=== PATIENT | female | born 1945 | race Caucasian/White ===

== ENCOUNTER → 2016-10-12 | Day surgery (SDC) | payer MEDICARE ==
[~2016-10-12] VITALS: Ht 157.5 cm; Wt 104.0 kg
[2016-10-12] VITALS (7 sets, daily range): BP systolic 124–132; BP diastolic 69–88; PULSE 78–97; RESP 14–16; O2SAT 96–100
[~2016-10-12] MED LIST: ALBU8.5H2 INHALATION; AMT25T PO; Atropine 0.4 mg/mL Inj IVPUSH PRN; CALC60CR3 TOPICAL; CERA453C2 TP; CHOL5000 PO; CLOB15CR3 TOP; CYAN100017 SL; FURO-128 PO; HYDR-4003 PO; IMI100 PO; LISI10TA PO; LORA10CA9 PO; Lactated Ringer's 1,000 ML IV ONE; Lactated Ringer's 1,000 ML IV SCH; MOME13HF2 IH; MULT-1018 PO; MetoCLOpramide 5 mg/mL 2 mL Inj IVPUSH PRN; OMEP40CA36 PO; Ondansetron 2 mg/mL 2 mL Inj IVPUSH PRN; PRAM0.75 PO; Propofol 10,000 mCg/mL 20 mL Inj ONE; SERT100T9 PO; TAMO20TA4 PO; TOPI50TA32 PO; ZYL100 PO; fentaNYL-PF 50 mCg/mL 2 mL Inj ONE
--- NOTE | 2016-10-12 11:46 | PCM.HPANE ---
Patient Data Surgeon Admitting Provider: Attending Provider:Zain Green MD Primary Care Physician:Tia Stevenson Other Provider:[facility] Reason for Visit Dysphagia Ht/WT & BMI Height (Feet): 5 Height (Inches): 2 Weight (Kilograms): 104 Body Mass Index 42.00 Allergies Coded Allergies: codeine (Verified Allergy, Severe, DYSPNEA,RESPIRATORY DISTRESS, 10/12/16) TAKES HYDROCODONE AT HOME nitrofurantoin (Verified Adverse Reaction, Severe, N&V, 10/12/16) pregabalin (Verified Adverse Reaction, Severe, EDEMA, 10/12/16) prochlorperazine (Verified Adverse Reaction, Severe, Agitation, 10/12/16) Past Anesthesia History Anesthesia History: Denies:: Abnormal Airway, Anesthesia Reactions, Difficult Intubation, Fam Anesthesia Reaction, Fam Malignant Hypertherm, Malignant Hyperthermia Diabetes History Hx Diabetes?: No MRSA MRSA: No Medications Hypertension Medication: Yes Home Meds Incl Beta Jillian: No Active Scripts Topiramate (Topamax)50 Mg Upddsa45 Mg PO BID 30 Days Ref 0 Prov:David Kelsey MD 12/06/13 Omeprazole 40 Mg Capsule.dr40 Mg PO BID 30 Days Ref 0 Prov:David Kelsey MD 12/06/13 Pramipexole Dihydrochloride (Mirapex)0.75 Mg Tablet0.75 Mg PO DAILY@15 30 Days Prov:David Kelsey MD 12/06/13 Sumatriptan (Imitrex)100 Mg Zicimz384 Mg PO Q12 HEADACHE 30 Days Prov:David Kelsey MD 12/06/13 Allopurinol 100 Mg Qhiaga992 Mg PO DAILY 30 Days Ref 0 Prov:David Kelsey MD 12/06/13 Reported Medications Sertraline HCl (Sertraline)100 Mg Btycba571 Mg PO DAILY 30 Days Ref 0 10/08/16 Mometasone/Formoterol (Dulera 100 Mcg/5 Mcg Inhaler)13 Gm Hfa.aer.ad13 Gm IH 10/08/16 Amitriptyline 25 Mg Tab25 Mg PO TID Ref 0 10/08/16 Tamoxifen Citrate 20 Mg Jlquix37 Mg PO DAILY 01/01/16 Lisinopril 10 Mg Ljgbpt49 Mg PO DAILY Ref 0 11/27/15 Hydrocodone-Acetaminophen 5-325 mg 1 Each Tablet1-2 Tablet PO Q6H PRN For Pain Ref 0 11/20/15 Pramipexole Dihydrochloride (Mirapex)0.75 Mg Tablet0.75-1.5 Mg PO HS 09/03/15 Albuterol HFA (Proair HFA)8.5 Gm Hfa.aer.ad2 Puffs INHALATION Q4H #1 INHALER 04/11/15 Cholecalciferol (Vitamin D3) (Vitamin D3)5,000 Unit Capsule5,000 Unit PO DAILY 09/14/14 Multivitamin (Multi Vitamin Daily)1 Each Tablet1 Each PO DAILY 30 Days Ref 0 09/14/14 Furosemide (Lasix)40 Mg Rhsusl02 Mg PO DAILY PRN edema 30 Days Ref 0 09/14/14 Mometasone/Formoterol (Dulera 100 Mcg/5 Mcg Inhaler)13 Gm Hfa.aer.ad2 Puffs IH BID 09/14/14 Clobetasol Propionate/Emoll (Clobetasol Emollient 0.05% Crm)15 Gm Cream..g.1 Appl TOP BID PRN PRN #1 TUBE 09/14/14 Ceramides 1,3,6-11 (Cerave)453 Gm Cream..g.453 Gm TP PRN 09/14/14 Calcipotriene Cream 30 Appl/60 Gm Cream1 Applic TOPICAL BID #1 TUBE Ref 0 0.005% 09/14/14 Discontinued Reported Medications Loratadine 10 Mg Wlmnxso80 Mg PO 10/08/16 Cyanocobalamin (Vitamin B-12) (Vitamin B-12)1,000 Mcg Tab.subl1,000 Mcg SL DAILY 09/14/14 History History of ENT Problems?: Yes HEENT History: Positive for:: Cataracts (bilateral) Dysphagia (hx of esophageal dilation) Hearing Problem Denies:: Abnormal Airway Difficult Intubation Sinus Problem Denture Type: None Teeth Condition: Within Normal Limits Hx of Heart Problems?: Yes Cardiovascular History: Positive for:: Abdominal Aortic Aneurism Edema (lower legs) Hypertension (hyperlipidemia) Denies:: AICD Atrial Fibrillation Cardiac Surgery Chest Pain Congestive Heart Failure Heart Murmur (echo 11/2013- ef 60-65%) Irregular Heartbeat 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 STIMULATOR IMPLANTED) Thrombophlebitis Valvular Heart Disease Other Cardiac History: < 4 mets, no recent CP Hx of Respiratory Problem?: Yes Respiratory History: Positive for:: Asthma COPD (PFT'S 11/2013 SHOW MILD RESTRICTIVE DEFECT) Cough (CHRONIC) Dyspnea (hx of SOB on exertion) Pneumonia (past hx of) Denies:: Chest Surgery Emphysema Hemoptysis Tuberculosis Use of C-PAP Machine (ROSEANN + doesnt tolerate CPAP) Hx Neurologic Problems?: Yes Neurological History: Positive for:: Dizziness (past hx of) Headaches Seizures (last - 1984 ) Denies:: Alzheimer's Disease CVA Dementia Parkinson's Disease Hx of GI Problems?: Yes Hx of Problems?: Yes Genitourinary History: Positive for:: Kidney Stones (hx of, with ESWL) Urinary Tract Infection (hx of- not current) Denies:: HX of Hemodialysis HX of Peritoneal Dialysis: No Female Hx: Positive for:: Problems with Breasts? (right breast current admission problem) Denies:: Currently (LAUREN) Endometriosis Pelvic Inflammatory Skin History: Positive for:: History Skin Disorders? (ECZEMA, PSORIASIS) Denies:: Pressure Ulcers Hx Musculoskeletal Problems?: Yes Musculoskeletal History: Positive for:: Back Injury (past hx spinal injury, scoliosis) Musculoskeletal Trauma (left carpal tunnel, index trigger finger current admission problem) Denies:: Joint Replacement Hx of Psycho/Social Problems?: Yes Psycho Social History: Positive for:: Hx Depression Denies:: Anxiety (PTSD) Bipolar Disorder Suicide Attempt Hx Surgeries?: Yes (josefina, ric, ESWL, lami, bilat CTR, interstim placement, TUBAL, LUMP-NORAH) Hx Any Other Health Problems?: Yes Other History: Positive for:: Cancer (right breast current admission problem) Hospitalization (UTI's, kidney stone) Denies:: Endocrine Disease Thyroid Disease History Blood Transfusions: Positive for:: Blood Transfusions Denies:: Blood Transfuse Reaction Hx Diabetes: No Hx Alcohol Use: Yes (VERY RARELY)Hx Substance Use: No Smoking Status: Never Smoker Have You Smoked inLast 12 mo: No Stop/Bang Treated for Sleep Apnea?: No (JUST COMPLETED SLEEP STUDY) Do You Have a CPAP Machine?: No S-Snoring: Do You Snore Loudly: Yes T-Tired: feel tired, fatigued: Yes O-Obsered: Observed not breath: No P-Blood Pressure: treated: Yes B- Body Mass Index > 35 kg/m2: Yes A- Age over 50: Yes N- Neck Large Circumference: Yes G- Gender Male: No ROSEANN Total Score: 6 ROSEANN Risk Assessment: High Risk, =/>3 Yes ROSEANN Category 2: Yes Risk Assessment Category Category 1A: Patient has history of documented sleep apnea, and HAS NOT received any narcotic, sedative or anesthesia administration during this stay. Category 1B: Patient has history of documented sleep apnea, and HAS received any narcotic , sedative or anesthesia administration during this stay Category 2: Patient has SUSPECTED Obstructive Sleep Apnea, and HAS received any narcotic , sedative or anesthesia administration during this stay. Category 3: Patient has SUSPECTED Obstructive Sleep Apnea and HAS NOT received narcotic, sedative or anesthesia administration during this stay. Category 4: Outpatient in Procedural Areas with known sleep apnea or who screen positive for High Risk via the STOP/BANG questionnaire. Exam Exam Vital Signs Vital Signs Date Time Temp Pulse Resp B/P Pulse Ox O2 Delivery O2 Flow Rate FiO2 10/12/16 11:23 36.1 86 16 132/88 98 Room Air General Appearance: Alert, Oriented X3, Cooperative, No Acute Distress HEENT/AIRWAY: MP 2 Lungs: Clear to Auscultation, Normal Air Movement Heart: Exam Unremarkable, Regular Rate/Rhythm, No Murmurs/Rubs/Gallops Plan Impression Patient chart reviewed, patient interviewed and anesthestic plan with risks, benefits, and alternatives discussed, and informed consent obtained. NPO per Anesth. Guidelines: Yes ASA Physical Status: ASA3 Severe Disease Anesthetic Plan: GA, MAC Bene/Risks/Altern/Consents: Yes HP Complete Prior to Induction: Yes Donny Miller MD Oct 12, 2016 11:46
--- NOTE | 2016-10-12 14:08 | PCM.ANEP1 ---
Post Anesthesia PACU Phase 1 Assessment Vital Signs Vital Signs Date Time Temp Pulse Resp B/P Pulse Ox O2 Delivery O2 Flow Rate FiO2 10/12/16 13:29 79 16 129/69 97 Room Air 10/12/16 13:20 78 16 126/70 97 Room Air 10/12/16 13:10 97 16 132/71 96 Room Air 10/12/16 12:49 81 14 125/69 97 Room Air 10/12/16 12:39 80 14 129/72 100 Room Air 10/12/16 12:30 84 16 124/69 100 Nasal Cannula 2 10/12/16 11:23 36.1 86 16 132/88 98 Room Air Anesthetic Administered: GA Level of Alertness: Awake, talking ALLEN's with Equal Strength: Yes Pain: No Nausea or Vomiting: No CV Function & Hydration Stable: Yes Airway Device: Oxygen Delivery: Room Air Lungs: Clear to Auscultation, Normal Air Movement PACU Phase 2 Assessment Complications: No Follow up Care: N/A Patient Instructions Provided: N/A Donny Miller MD Oct 12, 2016 14:08
--- NOTE | 2016-10-12 20:13 | ENDO ---
[address] [address] ENDOSCOPY PROCEDURE PATIENT: MANISHA NESS : 1945 MR#: [id number] ADMIT: 10/12/2016 JOB ID: [id number] DATE: 10/12/2016 PRIMARY PROVIDER: TANI Jerome. PROCEDURE: Esophagogastroduodenoscopy with Savary dilatation. INDICATIONS: A 70-year-old female with recurrence of dysphagia. She historically did well following 54-Vincentian empiric dilatation of an upper esophageal web. EQUIPMENT: [id number]. SEDATION: Monitored anesthesia as provided by Dr. Donny Miller. The patient did require much more than expected propofol. Please see the anesthesia notes. COMPLICATIONS: None identified. PROCEDURE INFORMATION: After the risks and benefits were explained, written and verbal informed consent was obtained, the patient was brought into the endoscopy suite and placed into the left lateral decubitus position. Sedation was achieved using the above-stated medications with the addition of oxygen via nasal cannula. The scope was introduced into the mouth through the bite block and advanced under direct visualization to the second portion of the duodenum. The scope was slowly withdrawn to carefully examine the mucosa for any defects or lesions. Retroflexed views were accomplished in the stomach. The stomach was slightly decompressed. A Savary wire was left in situ. A 54-Vincentian well-lubricated dilator was passed. We removed the dilator and wire together. I then reintubated the esophagus for a second look. The scope was then finally withdrawn from the patient who demonstrated suboptimal tolerance of the entire examination starting with attempts to get even below the epiglottis during intubation. She tended to roll towards her back and would reach for the scope. FINDINGS: 1. Duodenum: No pathology identified. 2. Stomach: No outlet obstruction. No ulcers. No mass lesions. No significant mucosal pathology appreciated. Retroflexed views of the LES were unremarkable. 3. Esophagus: The GE junction was at about 37 cm from the incisors. No acute erosive changes. No strictures. No mass lesions. There was a mild nonobstructing intermittently seen Schatzki's ring. The remainder of the esophagus was unremarkable. I did not appreciate an esophageal web or ring proximally. It was mildly challenging to again intubate the upper esophageal sphincter mechanism. With the Savary wire left in situ, we passed a well lubricated 54-Vincentian dilator over the wire. The patient did not seem to tolerate this similar to the way she did not tolerate really any of the exam. I only partially passed the dilator down into the upper esophageal sphincter. We did not dilate the entire the esophagus. The dilator was removed with the wire and on 2nd look there was clearly a mild rent in the mucosa in the region of the upper esophageal sphincter. There was some mild heme but no sustained or ongoing bleeding. ENDOSCOPIC DIAGNOSES: 1. Nonobstructing Schatzki's ring. 2. Subtle sliding hiatal hernia. 3. Tense upper esophageal sphincter mechanism, status post dilatation. RECOMMENDATIONS: 1. Slowly advance diet as tolerated. 2. Follow up in GI clinic in 4-6 weeks to review clinical response.
== END | disposition home or self-care (01) ==
LOC: END 00:21
PROVIDERS: ATTEND Internal Medicine Gastroenterology
DX: K22.2 Esophageal obstruction (principal); K44.9 Diaphragmatic hernia without obstruction or gangrene; R13.10 Dysphagia, unspecified; I12.9 Hypertensive chronic kidney disease with stage 1 through stage 4 chronic kidney disease, or unspecified chronic kidney disease; K21.9 Gastro-esophageal reflux disease without esophagitis; N18.3 Chronic kidney disease, stage 3 (moderate); G47.33 Obstructive sleep apnea (adult) (pediatric); F41.8 Other specified anxiety disorders; J98.4 Other disorders of lung; E66.01 Morbid (severe) obesity due to excess calories; G60.9 Hereditary and idiopathic neuropathy, unspecified; J45.909 Unspecified asthma, uncomplicated; Z85.3 Personal history of malignant neoplasm of breast; Z87.440 Personal history of urinary (tract) infections; Z68.41 Body mass index [BMI] 40.0-44.9, adult; Z87.442 Personal history of urinary calculi
CPT/HCPCS: 43248; J2704; J3010; J7120